=== PATIENT | female | born 1965 | race Caucasian/White ===

== ENCOUNTER 2019-02-09 08:05 | Day surgery (SDC) | payer BC ==
[~2019-02-09 08:05] MED LIST: Buffered Lidocaine 1% SYRIN* 1 ML/SYRINGE INTRADERM ONE; Dexamethasone TAB* 4 MG PO ONE; DiMENhydriNATE IV* 50 MG/ML VIAL IV PUSH PRN; Famotidine IV* 10 MG/ML 2 ML (20 mg) IV ONE; HYDROmorphone INJ1* 1 MG/ML SYRINGE IV PRN; Lactated Ringers 1000 ML Bag* 1,000 ML IV SCH; Naloxone* 0.4 MG/ML 1 ML VIAL IV PRN; Ondansetron ODT TAB* 4 MG PO ONE; PROCHLORPERAZINE INJ 5 MG/ML 2 ML VIAL IV PRN; fentaNYL* 50 MCG/ML 2 ML VIAL (100 MCG VIAL) IV PRN; oxyCODONE TAB* 5 MG TAB PO PRN
[2019-02-09] MEDS ORDERED: Ondansetron ODT TAB* 4 MG ONE (08:19)
[2019-02-09] MEDS ORDERED: Famotidine IV* 10 MG/ML 2 ML (20 mg) ONE (08:20)
[2019-02-09] MEDS ORDERED: ceFAZolin 2 GM PREMIX in ORs 2 GM/50 ML BAG ONE (08:20)
[2019-02-09] MEDS ORDERED: Dexamethasone TAB* 4 MG ONE (08:20)
[2019-02-09] MEDS ORDERED: fentaNYL* 50 MCG/ML 2 ML VIAL (100 MCG VIAL) ONE (08:28)
[2019-02-09] MEDS ORDERED: Lidocaine 2% PF * 5 ML VIAL ONE (08:29)
[2019-02-09] MEDS ORDERED: Midazolam* 1 MG/ML 5 ML VIAL (5 MG) ONE (08:29)
[2019-02-09] MEDS ORDERED: KETAMINE HCL* 50 MG/ML 10 ML VIAL ONE (08:29)
[2019-02-09] MEDS ORDERED: Propofol* 500 MG/50 ML BTL ONE (08:29)
[2019-02-09] MEDS ORDERED: Lidocaine 2% PF* 10 ML AMP ONE (10:17)
[2019-02-09] MEDS ORDERED: Ketorolac INJ* 30 MG/ML 1 ML VIAL ONE (11:06)
[2019-02-09 17:47] VITALS: BP 134/74
--- NOTE | 2019-02-10 03:44 | OP ---
OPERATIVE REPORT: DATE OF OPERATION: 02/09/19 - [facility] DATE OF : 61 SURGEON: Mark Roa MD. CLOCKMAKER APPRENTICE: DIONNE Crocker. ANESTHESIOLOGIST: Konstantin Sanchez MD ANESTHESIA: MAC. 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 OPERATIVE PROCEDURE: Straightening right fourth toe with a condylectomy at the PIP joint, percutaneous pinning, and plantar condylectomy of the right fourth metatarsal head. DESCRIPTION OF PROCEDURE: The patient was taken to the operating room where the transverse elliptical incision was made at the PIP joint. We dissected out the condyles of the PIP joint, resected them with the microsagittal saw giving good flat cuts. We then pinned the toe longitudinally with a 0.062 C-wire. We did not pass the MTP joint, rather a 3-cm incision was made lateral to the MTP joint with the extensor tendon swept medially. We subluxed the phalanx plantarward to allow visualization of undersurface of the metatarsal head, which was removed with a microsagittal saw. We then passed the K-wire across the metatarsal head. Both wounds were irrigated and closed with interrupted nylon sutures and a compression dressing applied. [id number] #: [id number] MTDD
== END 2019-02-09 13:09 | disposition home or self-care (01) ==
LOC: OR 08:05
PROVIDERS: ATTEND Orthopaedic Surgery
DX: M20.41 Other hammer toe(s) (acquired), right foot (principal); M77.41 Metatarsalgia, right foot; M19.071 Primary osteoarthritis, right ankle and foot
CPT/HCPCS: A9270-GY; C1776; J0690; J1885; J2001; J2250; J2704; J3010; J8540